=== PATIENT | female | born 1995 | race Caucasian/White ===

== ENCOUNTER 2019-10-04 00:16 | Emergency (ER) | payer OTHER ==
[~2019-10-04] VITALS: Ht 172.7 cm; Wt 82.1 kg
[2019-10-04 00:24] VITALS: BP 139/88
[2019-10-04] MEDS ORDERED: ONDANSETRON ODT 4 MG ONE (00:29)
[2019-10-04] MEDS ORDERED: ONDANSETRON ODT 4 MG PO ONE (00:30)
[2019-10-04] MEDS ORDERED: SODIUM CHLORIDE FLUSH 10ML SYR IVF ONE (01:00)
[2019-10-04] MEDS ORDERED: MAALOX/HYOSCYAMINE/LIDOCAINE 45 ML BTL PO ONE (01:00)
[2019-10-04] MEDS ORDERED: ONDANSETRON 2MG/ML, 2ML IVPush ONE (01:00)
[2019-10-04] MEDS ORDERED: SODIUM CHLORIDE 0.9% 1,000ML IVBOLUS ONE ×2 (01:00→02:30)
[2019-10-04] MEDS ORDERED: FAMOTIDINE 20 MG/2 ML IV ONE (01:00)
[2019-10-04] MEDS ORDERED: ONDANSETRON 2MG/ML, 2ML ONE (01:09)
[2019-10-04] MEDS ORDERED: FAMOTIDINE 20 MG/2 ML ONE (01:09)
[2019-10-04 01:17] LABS: MEAN CORPUSCULAR HEMOGLOBIN 32.7 pg (27.0-34.8); MEAN CORPUSCULAR HGB CONC 33.5 g/dL (32.4-35.8); MEAN CORPUSCULAR VOLUME 97.6 fL (80-100); MEAN PLATELET VOLUME 8.4 fL (7.4-10.4); PLATELET COUNT 288 x10^3/uL (130-400); RED BLOOD COUNT 4.89 x10^6/uL (3.82-5.3); RED CELL DISTRIBUTION WIDTH 12.3 % (9.6-15.2)
[2019-10-04 01:30] LABS: ALBUMIN 4.7 g/dL (3.4-5.0); ANION GAP 10 mmol/L (5-15); CALCIUM 9.4 mg/dL (8.5-10.1); CHLORIDE 108 mmol/L (98-107); CREATININE 1.26 mg/dL (0.55-1.02)
[2019-10-04 01:34] LABS: ALKALINE PHOSPHATASE 74 U/L (45-117); BILIRUBIN,TOTAL 0.8 mg/dL (0.2-1.0); TOTAL PROTEIN 8.2 g/dL (6.4-8.2)
[2019-10-04 01:40] LABS: ALANINE AMINOTRANSFERASE 30 U/L (12-78)
--- NOTE | 2019-10-04 01:40 | NUR ---
pt attached to vs machines. pt vss at this time. [place] [facility]. iv access established and pt medicated per dec. pt ambulated to restroom with steady gait.
--- NOTE | 2019-10-04 01:58 | NUR ---
pt urine walked to lab at this time. report to trauma rn joann at this time.
[2019-10-04 02:00] LABS: BASOPHILS # (AUTO) 0.04 x10^3/uL (0-0.1); BASOPHILS % (AUTO) 0 % (0-1); EOSINOPHILS # (AUTO) 0.03 x10^3/uL (0-0.4); EOSINOPHILS % (AUTO) 0 % (1-7); LYMPHOCYTES # (AUTO) 1.65 x10^3/uL (1-3.4); LYMPHOCYTES % (AUTO) 11 % (22-44); MD SCAN; MONOCYTES # (AUTO) 0.31 x10^3/uL (0.2-0.8); MONOCYTES % (AUTO) 2 % (2-9); NEUTROPHILS # (AUTO) 13.38 x10^3/uL (1.8-6.8); NEUTROPHILS % (AUTO) 87 % (42-75)
[2019-10-04] MEDS ORDERED: PROMETHAZINE 25 MG/ML, 1ML IM ONE (02:30)
[2019-10-04 02:32] LABS: AMPHETAMINE SCREEN, URINE Negative (Negative); BARBITURATE SCREEN, URINE Negative (Negative); BENZODIAZEPINE SCREEN, URINE Negative (Negative); CANNABINOID SCREEN, URINE Positive (Negative); COCAINE SCREEN, URINE Negative (Negative); METHADONE SCREEN, URINE Negative (Negative); OPIATE SCREEN, URINE Negative (Negative)
[2019-10-04] MEDS ORDERED: PROMETHAZINE 25 MG/ML, 1ML ONE (02:32)
[2019-10-04 02:33] LABS: CULTURE INDICATED? YES; MICROSCOPIC INDICATED
--- NOTE | 2019-10-04 02:42 | NUR ---
pt medicated per dec for nausea. 2nd L of iv fluids hung. pt provided with a cup of ice water at this time and instructed to take small sips as tolerated. pt verbalizes understanding. mother at bs. call light is within reach.
--- NOTE | 2019-10-04 03:29 | NUR ---
PT D/C WITH D/C SUMMARY AND SCRIPTS AND AMBULATES TO REGISTRATION DESK WITH STEADY GAIT WITH HER MOTHER FOR D/C HOME. PT DENIES ANY OTHER NEEDS PERTAINING TO THIS VISIT. PT VERBALIZES UNDERSTANDING OF [facility] AND F/U INSTRUCTIONS. PT IV D/C WITH TIP INTACT AND ALL QUESTIONS ANSWERED.
== END 2019-10-04 03:36 | disposition home or self-care (01) ==
LOC: ED 03:25
DX: E86.0 Dehydration (principal); R10.84 Generalized abdominal pain; R11.2 Nausea with vomiting, unspecified; E07.9 Disorder of thyroid, unspecified; Z87.19 Personal history of other diseases of the digestive system; Z85.43 Personal history of malignant neoplasm of ovary
CPT/HCPCS: 36415; 80053; 80307; 81001; 83690; 84443; 84703; 85025; 87086; 96361; 96372; 96374; 96375; 99283; J2405; J2550; J3490; J7030; Q0162

== ENCOUNTER 2020-06-24 17:40 | Emergency (ER) | payer OTHER ==
[~2020-06-24] VITALS: Ht 172.7 cm; Wt 84.5 kg
--- NOTE | 2020-06-24 18:24 | NUR ---
PT CAME IN CO OF UTI AND FLANK PAIN. SHE STARTED TAKING CIPRO YESTERDAY AND SAYS IT HASNT BEEN WORKING. PT IS RESTING IN [facility]. CONNECTED TO MONITORING EQUIPMENT
[2020-06-24 18:46] VITALS: BP 132/82
--- NOTE | 2020-06-24 18:46 | NUR ---
PT RESTING IN [facility]. VSS. NAD
[2020-06-24 18:50] LABS: MICROSCOPIC INDICATED
== END 2020-06-24 21:03 | disposition home or self-care (01) ==
LOC: ED 20:41
DX: N30.00 Acute cystitis without hematuria (principal); N10 Acute pyelonephritis
CPT/HCPCS: 36415; 81001; 84703; 87077; 87086; 99283

== ENCOUNTER 2020-06-27 11:54 | Emergency (ER) | payer OTHER ==
[~2020-06-27] VITALS: Ht 172.7 cm; Wt 85.4 kg
[2020-06-27 11:59] VITALS: BP 153/102
--- NOTE | 2020-06-27 12:35 | NUR ---
URINE COLLECTED VIA STRAIGHT CATH AND TAKEN TO LAB.
== END 2020-06-27 13:28 | disposition home or self-care (01) ==
LOC: ED 12:40
DX: R82.79 Other abnormal findings on microbiological examination of urine (principal); N39.0 Urinary tract infection, site not specified
CPT/HCPCS: 87086; 99283

== ENCOUNTER 2021-01-19 22:05 | Emergency (ER) | payer OTHER ==
[~2021-01-19] VITALS: Ht 175.3 cm; Wt 85.2 kg
[2021-01-19] MEDS ORDERED: DIPHENHYDRAMINE 50 MG/ML, 1ML ONE (22:41)
[2021-01-19] MEDS ORDERED: ONDANSETRON 2MG/ML, 2ML ONE (22:42)
[2021-01-19] MEDS ORDERED: DIPHENHYDRAMINE 50 MG/ML, 1ML IVPush ONE (23:00)
[2021-01-19] MEDS ORDERED: ONDANSETRON 2MG/ML, 2ML IVPush ONE (23:00)
[2021-01-19] MEDS ORDERED: SODIUM CHLORIDE 0.9% 1,000ML IVBOLUS ONE (23:00)
[2021-01-19 23:06] LABS: BASOPHILS % (AUTO) 0 % (0-1); EOSINOPHILS % (AUTO) 0 % (1-7); LYMPHOCYTES % (AUTO) 17 % (22-44); MEAN CORPUSCULAR HEMOGLOBIN 32.4 pg (27.0-34.8); MEAN CORPUSCULAR HGB CONC 35.1 g/dL (32.4-35.8); MEAN PLATELET VOLUME 8.3 fL (7.4-10.4); MONOCYTES % (AUTO) 2 % (2-9); NEUTROPHILS % (AUTO) 80 % (42-75); PLATELET COUNT 352 x10^3/uL (130-400); RED BLOOD COUNT 5.13 x10^6/uL (3.82-5.3); RED CELL DISTRIBUTION WIDTH 12.3 % (9.6-15.2)
[2021-01-19 23:07] LABS: MD NO
[2021-01-19 23:11] LABS: ALANINE AMINOTRANSFERASE 21 U/L (12-78); ALBUMIN 4.6 g/dL (3.4-5.0); ANION GAP 10 mmol/L (5-15); CALCIUM 9.7 mg/dL (8.5-10.1); CHLORIDE 107 mmol/L (98-107); CREATININE 1.38 mg/dL (0.55-1.02)
[2021-01-19 23:13] LABS: ALKALINE PHOSPHATASE 87 U/L (45-117); BILIRUBIN,TOTAL 0.5 mg/dL (0.2-1.0); TOTAL PROTEIN 8.4 g/dL (6.4-8.2)
[2021-01-19 23:32] LABS: HCG UR SG 1.039 (1.003-1.030); MICROSCOPIC INDICATED
[2021-01-19 23:43] LABS: AMPHETAMINE SCREEN, URINE Negative (Negative); BARBITURATE SCREEN, URINE Negative (Negative); BENZODIAZEPINE SCREEN, URINE Positive (Negative); CANNABINOID SCREEN, URINE Positive (Negative); COCAINE SCREEN, URINE Negative (Negative); METHADONE SCREEN, URINE Negative (Negative); OPIATE SCREEN, URINE Negative (Negative)
[2021-01-19 23:59] VITALS: BP 125/74
== END 2021-01-20 00:56 | disposition home or self-care (01) ==
LOC: ED 01-20 00:55
DX: R11.2 Nausea with vomiting, unspecified (principal); R10.13 Epigastric pain; F12.10 Cannabis abuse, uncomplicated; Z72.9 Problem related to lifestyle, unspecified
CPT/HCPCS: 36415; 80053; 80307; 81001; 81025; 83690; 85025; 87086; 96361; 96374; 96375; 99284; J1200; J2405; J7030

== ENCOUNTER 2021-05-13 12:04 | Emergency (ER) | payer OTHER ==
[~2021-05-13] VITALS: Ht 175.3 cm; Wt 84.2 kg
[2021-05-13 12:58] LABS: MICROSCOPIC INDICATED
--- NOTE | 2021-05-13 13:25 | NUR ---
Korina polanco in [facility] - 05/13/21 at 1325 by SHANIA 70ML OUT S/P CATH REMOVAL.
[2021-05-13 13:56] LABS: BASOPHILS % (AUTO) 1 % (0-1); EOSINOPHILS % (AUTO) 0 % (1-7); LYMPHOCYTES % (AUTO) 31 % (22-44); MEAN CORPUSCULAR HGB CONC 34.7 g/dL (32.4-35.8); MEAN PLATELET VOLUME 8.4 fL (7.4-10.4); MONOCYTES % (AUTO) 4 % (2-9); NEUTROPHILS % (AUTO) 64 % (42-75); PLATELET COUNT 222 x10^3/uL (130-400); RED BLOOD COUNT 4.59 x10^6/uL (3.82-5.3); RED CELL DISTRIBUTION WIDTH 12.6 % (9.6-15.2)
[2021-05-13 14:08] LABS: ALBUMIN 3.9 g/dL (3.4-5.0); ANION GAP 8 mmol/L (5-15); CALCIUM 9.2 mg/dL (8.5-10.1); CHLORIDE 106 mmol/L (98-107); CREATININE 0.87 mg/dL (0.55-1.02)
[2021-05-13] MEDS ORDERED: ONDANSETRON ODT 4 MG ONE (14:14)
--- NOTE | 2021-05-13 14:19 | NUR ---
PT MEDICATED PER ORDER WITH EDUCATION ON PO CHALLENGE. SPRITE AT BEDSIDE WITH INSTRUCTIONS ON HOW AND WHEN TO CONSUME. PT ENCOURAGED TO NOTIFY RN IF NAUSEA DOES NOT RESOLVE.
[2021-05-13] MEDS ORDERED: ONDANSETRON ODT 4 MG PO ONE (14:30)
[2021-05-13 14:36] VITALS: BP 112/74
--- NOTE | 2021-05-13 14:37 | NUR ---
Patient given discharge instructions and they have confirmed that they understand the instructions. Patient ambulatory with steady gait. NAD, all questions answered appropriately, denies additional needs at this time. No personal belongings left in room after discharge.
== END 2021-05-13 14:38 | disposition home or self-care (01) ==
LOC: ED 14:34
DX: K52.9 Noninfective gastroenteritis and colitis, unspecified (principal); Z86.39 Personal history of other endocrine, nutritional and metabolic disease
CPT/HCPCS: 36415; 80048; 81001; 82040; 84703; 85025; 99283; Q0162

== ENCOUNTER 2021-05-13 19:45 | Emergency (ER) | payer OTHER ==
[~2021-05-13] VITALS: Ht 177.8 cm; Wt 83.6 kg
--- NOTE | 2021-05-13 23:03 | NUR ---
pt presents to ed with n/v. pt was here earlier today with vomitting as well, given zofran. pt states she is still throwing up and nausous. pt in gown, on gurney, and placed on continuous monitoring.
[2021-05-13] MEDS ORDERED: FAMOTIDINE 20 MG/2 ML ONE (23:24)
[2021-05-13] MEDS ORDERED: ONDANSETRON 2MG/ML, 2ML ONE (23:24)
[2021-05-13] MEDS ORDERED: ONDANSETRON 2MG/ML, 2ML IVPush ONE (23:30)
[2021-05-13] MEDS ORDERED: FAMOTIDINE 20 MG/2 ML IVPush ONE (23:30)
[2021-05-13] MEDS ORDERED: SODIUM CHLORIDE 0.9% 1,000ML IVBOLUS ONE (23:30)
[2021-05-13] MEDS ORDERED: SODIUM CHLORIDE FLUSH 10ML SYR IVF ONE (23:30)
--- NOTE | 2021-05-14 | NUR ---
PT RESTING ON GURNEY, PT STILL FEELING NAUSEOUS.
[2021-05-14] MEDS ORDERED: PROMETHAZINE 25 MG/ML, 1ML ONE (00:37)
[2021-05-14 01:00] VITALS: BP 135/84
[2021-05-14] MEDS ORDERED: PROMETHAZINE 25 MG/ML, 1ML IM ONE (01:00)
--- NOTE | 2021-05-14 01:00 | NUR ---
PT FEELING BETTER, PT RESTING ON GURNEY, DENIES NEEDS AT THIS TIME.
--- NOTE | 2021-05-14 02:04 | NUR ---
Patient given discharge instructions and they have confirmed that they understand the instructions. Patient ambulatory with steady gait.
== END 2021-05-14 02:05 | disposition home or self-care (01) ==
LOC: ED 22:44
DX: R11.2 Nausea with vomiting, unspecified (principal); R10.9 Unspecified abdominal pain
CPT/HCPCS: 96361; 96372; 96374; 96375; 99284; J2405; J2550; J7030